=== PATIENT | male | born 1990 | race Caucasian/White ===

== ENCOUNTER 2016-08-22 17:30 | Emergency (ER) | payer BC ==
[2016-08-22] MEDS ORDERED: HYDROCODONE/APAP 7.5/325MG TABLET PO ONE ×2 (17:47→18:36)
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
== END 2016-08-22 18:55 | disposition home or self-care (01) ==
LOC: ER 17:30
DX: S43.402A Unspecified sprain of left shoulder joint, initial encounter (principal); V28.0XXA Motorcycle driver injured in noncollision transport accident in nontraffic accident, initial encounter; Y92.488 Other paved roadways as the place of occurrence of the external cause
CPT/HCPCS: 99283